=== PATIENT | female | born 1990 | race Caucasian/White ===

== ENCOUNTER 2022-11-28 09:37 | Emergency (ER) | payer SELFPAY ==
[2022-11-28 09:40] VITALS: BP 155/91; PULSE 111; RESP 19; TEMP 36.6; O2SAT 98; BMI 31.7
--- NOTE | 2022-11-28 09:47 | ED.NAVMDI ---
HPI - Nausea/Vomiting/Diarrhea General Chief complaint: Nausea/Vomiting/Diarrhea Stated complaint: Nausea Diarrhea Time Seen by Provider: 11/28/22 09:45 Source: patient Mode of arrival: ambulatory Limitations: no limitations History of Present Illness HPI Narrative: 32yo female previously healthy here with complaints of 3 days of nausea/vomiting/diarrhea after eating shrimp ramen (dried package from store). Patient reports 3-4 episodes of non-bloody stools per day. Multiple episodes of NBNB emesis, unable to tolerate liquids. +generalized abdominal cramping. No fevers, chills, uri symptoms. No recent travel, sick contact, antibiotic use. No previous abdominal surgeries. Took home COVID test which was negative Associated nausea: Yes Related Data Previous Rx's Medication Instructions Recorded albuterol sulfate 90 mcg/actuation 2 puff inhalation Q4-6H PRN 03/09/21 aerosol inhaler (ProAir HFA) shortness of breath or wheezing #8.5 grams dicyclomine 10 mg capsule 10 mg PO QID PRN abdominal pain 11/28/22 #20 caps ondansetron 4 mg disintegrating 4 mg PO Q6H PRN nausea and 11/28/22 tablet vomiting #15 tabs Allergies Allergy/AdvReac Type Severity Reaction Status Date / Time No Known Allergies Allergy Verified 11/28/22 09:40 Review of Systems Review of Systems: Yes all other systems are reviewed and are negative Constitutional: Constitutional: Reports no additional constitutional complaints, Denies body ache(s), Denies chills, Denies fever(s), Denies headache(s) and Denies weakness Eyes: Eyes: Reports no additional eye complaints and Denies change in vision ENT: Reports system reviewed and no additional complaints, except as documented, Denies dizziness, Denies headache(s), Denies nasal congestion, Denies nasal discharge and Denies neck pain Cardiovascular: Cardiovascular: Reports no additional cardiovascular complaints, Denies chest pain, Denies leg edema and Denies dyspnea Respiratory: Respiratory: Reports no additional respiratory complaints, Denies cough and Denies dyspnea Gastrointestinal: Gastrointestinal: Reports no additional gastrointestinal complaints, Denies abdominal pain, Reports diarrhea, Reports nausea and Reports vomiting Genitourinary: Genitourinary: Reports no additional female genitourinary complaints and Denies urinary incontinence Musculoskeletal: Musculoskeletal: Reports no additional musculoskeletal complaints, Denies back pain, Denies arthralgias, Denies joint swelling, Denies neck pain, Denies numbness and Denies tingling Integumentary/Breasts: Skin/Breast: Reports system reviewed and no additional complaints, except as docu and Denies rash Neurologic: Reports system reviewed and no additional complaints, except as documented, Denies Abnormal speech present, Denies dizziness, Denies headache(s), Denies numbness, Denies tingling and Denies weakness PMF Past Medical History Attestation statement: The following information was validated with the patient. Source: old records reviewed and nursing notes reviewed Family History Family History Mother Diabetes Hypothyroid Social History Social History Housing: Apartment Alcohol intake: never Patient Tobacco Use Status: Never used Tobacco Smoked in Last 30 Days: No Use of substances other than those prescribed or required for medical reasons: No Advance Directives: No Advance Directives Information Provided: No Current occupational status: employed Sexual orientation: Straight/Heterosexual Gender identity: Female Physical Exam Vital Signs: Vital Signs: Last Vital Signs Temp 98.4 F 11/28/22 12:02 Pulse 82 11/28/22 12:02 Resp 18 11/28/22 12:02 BP 129/83 11/28/22 12:02 Pulse Ox 100 11/28/22 12:02 O2 Del Method Room Air 11/28/22 12:02 BMI result Body Mass Index 31.7 Const: General: cooperative, healthy appearing, comfortable and no acute distress Orientation/consciousness: patient oriented x3 Limitations: no limitations HEENT: Head: Yes normal to inspection Ears: hearing grossly normal bilaterally General nose exam: Normal external nose present Face and sinus: Yes normal facial exam Mouth: Normal oral and palatal mucosa present Throat: Yes posterior oropharynx normal Eyes: General: appearance normal, both eyes and all related structures Pupils: Equal, round and reactive pupils present Neck: Neck: Yes normal visual inspection Chest: Chest palpation & inspection: normal inspection of the chest Resp: Effort & Inspection: normal respiratory effort Auscultation: clear to auscultation bilaterally Cardio: Rate: regular rate Rhythm: regular rhythm Peripheral pulses: Peripheral pulses 2+ throughout GI: Inspection: Yes normal to inspection and No distended Palpation (GI): Soft to palpation and nontender Auscultation: normal bowel sounds Back/Spine/Pelvis: Thoracic/Lumbar Spine: thoracic and lumbar spine normal to inspection Skin: General skin exam: no rashes or lesions noted Neuro: General: patient oriented x3, no focal motor deficits and normal sensation to monofilament Cranial nerves: Yes Equal, round and reactive pupils present Cognition (Neuro): normal cognition Speech: No Abnormal speech present Gait exam (Neuro): Normal gait present Motor exam (neuro): 5/5 motor strength present throughout Extrem: General: Yes normal to inspection, Yes no pedal edema and Yes no calf tenderness Course Course Course Narrative: Labs are unremarkable. COVID/flu/rsv are negative. Tolerating valente paxton and crackers with no additional vomiting. Likely viral gastroenteritis. Dc home with bentyl prn, zofran prn and strict return precautions. Medications Administered Discontinued Medications Generic Name Dose Route Start Last Admin Trade Name Freq PRN Reason Stop Dose Admin Sodium Chloride 2,000 mls @ 999 mls/hr 11/28/22 09:53 11/28/22 12:07 Ns IV 11/28/22 11:53 Infused .Q2H1M STA Infusion Ondansetron HCl 4 mg 11/28/22 09:53 11/28/22 10:23 Ondansetron Hcl 4 Mg/2 Ml Vial IVPUSH 11/28/22 09:54 4 mg ONCE ONE Administration Medical Decision Making Medical Decision Making [facility] Narrative: 32yo female here with complaints of 3 days of nausea/vomiting/diarrhea with generalized abdominal cramping. On exam no focal abdominal pain. +tachycardia with dry MM. Will obtain labs, UA, ur preg, covid/flu/rsv testing. Will place PIV, give IVF, antiemetic Differential Diagnosis Differential Diagnoses: The differential diagnosis associated with the presentation includes gastroenteritis low concern for infectious diarrhea, acute abdominal pathology Admission/Observation Consideration of admission/observation: Escalation of care including admission/observation considered see course of care Lab Data MDM Lab Attestation statement: I reviewed the patient's lab results. Labs are unremarkable 11/28/22 10:34 11/28/22 10:34 Labs: Lab Results 11/28/22 11/28/22 11/28/22 Range/Units 10:34 10:34 10:34 WBC 6.1 (4.8-10.8) X10*3/uL RBC 4.91 (4.20-5.50) X10*6/uL Hgb 13.5 (12.0-16.0) g/dl Hct 39.4 (37.0-47.0) % MCV 80.2 (80.0-98.0) fL MCH 27.5 (27.0-33.0) pg MCHC 34.3 (31.0-35.0) g/dl RDW 12.2 (11.0-16.0) % Plt Count 348 (160-400) X10*3/uL MPV 9.0 L (9.4-12.3) fL Immature Gran % (Auto) 0.5 H (0.0-0.4) % Neut % (Auto) 83.4 H (45-73) % Lymph % (Auto) 9.8 L (20-40) % [place] % (Auto) 6.1 (2-11) % Eos % (Auto) 0.0 (0-4) % Baso % (Auto) 0.2 (0-2) % Lymph # (Auto) 0.6 L (1.2-4.9) X10*3/uL [place] # (Auto) 0.4 (0.1-1.2) X10*3/uL Eos # (Auto) 0.0 (0.0-0.4) X10*3/uL Baso # (Auto) 0.0 (0.0-0.2) X10*3/uL Abs Immat Gran (auto) 0.03 (0.00-0.03) X10*3/uL Absolute Neuts (auto) 5.1 (2.0-8.3) x10*3/uL Absolute Nucleated RBC 0.000 (0.0-0.012) X10*3/uL Nucleated RBC % (auto) 0.0 (0.0-0.2) /100WBC Sodium 138 (135-145) mmol/L Potassium 3.8 (3.3-5.1) mmol/L Chloride 105 (96-108) mmol/L Carbon Dioxide 24 (22-29) mmol/L Anion Gap 13 (12-20) BUN 12 (9-16) mg/dL Creatinine 0.75 (0.5-1.4) mg/dL Estim Creat Clear Calc 123.2 Estimated GFR > 60 Random Glucose 118 H (60-115) mg/dL Calcium 9.8 (8.4-10.2) mg/dL Magnesium 2.0 (1.6-2.6) mg/dL Total Bilirubin 0.6 (0.0-1.0) mg/dL Direct Bilirubin 0.2 (0.0-0.5) mg/dL AST 18 (5-31) U/L ALT 16 (0-31) U/L Alkaline Phosphatase 115 (39-117) U/L Total Protein 8.2 H (6.5-8.0) g/dL Albumin 4.5 (3.5-5.0) g/dL Urine Color Urine Appearance Urine pH (5.0-9.0) Ur Specific [place] (1.005-1.025) Urine Protein (Neg-Trace) mg/dL Urine Glucose (UA) (Negative) mg/dL Urine Ketones (Negative) mg/dL Urine Blood (Negative) Urine Nitrite (Negative) Ur Leukocyte Esterase (Negative) Urine Test (NEGATIVE) Influenza Type A (PCR) NEGATIVE (Negative) Influenza Type B (PCR) NEGATIVE (Negative) RSV RNA Qual (PCR) NEGATIVE (Negative) SARS-CoV-2 RNA (RT-PCR) NEGATIVE (Negative) 11/28/22 11/28/22 Range/Units 10:35 11:55 WBC (4.8-10.8) X10*3/uL RBC (4.20-5.50) X10*6/uL Hgb (12.0-16.0) g/dl Hct (37.0-47.0) % MCV (80.0-98.0) fL MCH (27.0-33.0) pg MCHC (31.0-35.0) g/dl RDW (11.0-16.0) % Plt Count (160-400) X10*3/uL MPV (9.4-12.3) fL Immature Gran % (Auto) (0.0-0.4) % Neut % (Auto) (45-73) % Lymph % (Auto) (20-40) % [place] % (Auto) (2-11) % Eos % (Auto) (0-4) % Baso % (Auto) (0-2) % Lymph # (Auto) (1.2-4.9) X10*3/uL [place] # (Auto) (0.1-1.2) X10*3/uL Eos # (Auto) (0.0-0.4) X10*3/uL Baso # (Auto) (0.0-0.2) X10*3/uL Abs Immat Gran (auto) (0.00-0.03) X10*3/uL Absolute Neuts (auto) (2.0-8.3) x10*3/uL Absolute Nucleated RBC (0.0-0.012) X10*3/uL Nucleated RBC % (auto) (0.0-0.2) /100WBC Sodium (135-145) mmol/L Potassium (3.3-5.1) mmol/L Chloride (96-108) mmol/L Carbon Dioxide (22-29) mmol/L Anion Gap (12-20) BUN (9-16) mg/dL Creatinine (0.5-1.4) mg/dL Estim Creat Clear Calc Estimated GFR Random Glucose (60-115) mg/dL Calcium (8.4-10.2) mg/dL Magnesium (1.6-2.6) mg/dL Total Bilirubin (0.0-1.0) mg/dL Direct Bilirubin (0.0-0.5) mg/dL AST (5-31) U/L ALT (0-31) U/L Alkaline Phosphatase (39-117) U/L Total Protein (6.5-8.0) g/dL Albumin (3.5-5.0) g/dL Urine Color Yellow Urine Appearance Clear Urine pH 5.0 (5.0-9.0) Ur Specific [place] 1.020 (1.005-1.025) Urine Protein Trace (Neg-Trace) mg/dL Urine Glucose (UA) Negative (Negative) mg/dL Urine Ketones Trace (Negative) mg/dL Urine Blood Negative (Negative) Urine Nitrite Negative (Negative) Ur Leukocyte Esterase Negative (Negative) Urine Test NEGATIVE (NEGATIVE) Influenza Type A (PCR) (Negative) Influenza Type B (PCR) (Negative) RSV RNA Qual (PCR) (Negative) SARS-CoV-2 RNA (RT-PCR) (Negative) Tests considered The following testing was considered but not selected: No focal abdominal pain to suggest need for CT A/P Discharge Plan Discharge Clinical Impression: Gastroenteritis Patient Disposition: Home, Self-Care Instructions: Gastroenteritis (ED) Additional Instructions: Start with clear liquids, then advance diet as tolerated Lab work is normal Testing for covid, flu, rsv are negative Return for intractable vomiting, fever, worsening abdominal pain Prescriptions: New ondansetron 4 mg tablet,disintegrating 4 mg PO Q6H PRN (Reason: nausea and vomiting) Qty: 15 0RF dicyclomine 10 mg capsule 10 mg PO QID PRN (Reason: abdominal pain) Qty: 20 0RF No Action albuterol sulfate [ProAir HFA] 90 mcg/actuation HFA aerosol inhaler 2 puff inhalation Q4-6H PRN (Reason: shortness of breath or wheezing) Qty: 8.5 2RF Referrals: Arelis Velazquez [employer] [Primary Care Provider] - 10 days Stand Alone Forms: Work/School Release Interventions: ED Discharge Assessment Last Done: 11/28/22 12:30 Discharge Date/Time: 11/28/22 12:36
[2022-11-28] MEDS: ondansetron HCL 4 MG/2 ML VIAL IVPUSH (10:23)
[2022-11-28] MEDS: 0.9 % Sodium Chloride 2,000 ML 999 ML IV (10:23)
[2022-11-28 10:54] LABS: Basophils Percent Auto 0.2 % (0-2); Hematocrit 39.4 % (37.0-47.0); Hemoglobin 13.5 g/dl (12.0-16.0); Imm Gran Abs Auto 0.03 X10*3/uL (0.00-0.03); Imm Gran Pct Auto 0.5 % (0.0-0.4); Lymphocytes Absolute Auto 0.6 X10*3/uL (1.2-4.9); Lymphocytes Percent Auto 9.8 % (20-40); MANUAL DIFF FLAG NO; Mean Corpuscular HGB Conc 34.3 g/dl (31.0-35.0); Mean Corpuscular Hemoglobin 27.5 pg (27.0-33.0); Mean Corpuscular Volume 80.2 fL (80.0-98.0); Monocytes Absolute Auto 0.4 X10*3/uL (0.1-1.2); Monocytes Percent Auto 6.1 % (2-11); Neutrophils Absolute Auto 5.1 x10*3/uL (2.0-8.3); Neutrophils Percent Auto 83.4 % (45-73); Platelet Count 348 X10*3/uL (160-400); Red Blood Count 4.91 X10*6/uL (4.20-5.50); Red Cell Distribution Width 12.2 % (11.0-16.0); White Blood Count 6.1 X10*3/uL (4.8-10.8)
[2022-11-28 10:56] LABS: Appearance Urine Clear; Color Urine Yellow; Glucose Urine UA Negative (Negative); Leukocyte Esterase Urine Negative (Negative); Nitrite Urine Negative (Negative); Urine Blood Negative (Negative); Urine Ketones Trace mg/dL (Negative); Urine Protein Trace mg/dL (Neg-Trace)
[2022-11-28 11:06] LABS: Alanine Aminotransferase 16 U/L (0-31); Albumin Level 4.5 g/dL (3.5-5.0); Alkaline Phosphatase 115 U/L (39-117); Anion Gap 13 (12-20); Aspartate Amino Transferase 18 U/L (5-31); Bilirubin Direct 0.2 mg/dL (0.0-0.5); Bilirubin Total 0.6 mg/dL (0.0-1.0); Blood Urea Nitrogen 12 mg/dL (9-16); Calcium 9.8 mg/dL (8.4-10.2); Carbon Dioxide 24 mmol/L (22-29); Chloride 105 mmol/L (96-108); Creatinine Clr Calc Pharmacy 123.2; Estimated Glomerular Filt Rate > 60; Glucose Random 118 mg/dL (60-115); Potassium 3.8 mmol/L (3.3-5.1); Sodium 138 mmol/L (135-145); Total Protein 8.2 g/dL (6.5-8.0)
[2022-11-28 11:51] LABS: Influenza A PCR NEGATIVE (Negative); Influenza B PCR NEGATIVE (Negative); Resp Syncy Virus RNA Qual PCR NEGATIVE (Negative); SARS COV2 PCR INHOUSE NEGATIVE (Negative)
--- NOTE | 2022-11-28 11:53 | PC.NURSE ---
ambulated to bathroom to obtain urine sample. attempting to PO challenge pt with valente paxton and crackers at this time
[2022-11-28 12:02] VITALS: BP 129/83; PULSE 82; RESP 18; TEMP 36.9; O2SAT 100
[2022-11-28 12:09] LABS: UPreg QC Valid YES; Urine Pregnancy NEGATIVE (NEGATIVE)
== END 2022-11-28 12:36 | disposition home or self-care (01) ==
PROVIDERS: Nurse Practitioner Family; Emergency Provider Student in an Organized Health Care Education/Training Program; PCP Hospitalist
DX: K52.9 Noninfective gastroenteritis and colitis, unspecified (principal); R11.2 Nausea with vomiting, unspecified; Z20.822 Contact with and (suspected) exposure to COVID-19; Z20.828 Contact with and (suspected) exposure to other viral communicable diseases; Z79.899 Other long term (current) drug therapy
CPT/HCPCS: 0241U; 80048; 80076; 81003; 81025; 83735; 85025; 96361; 96374; 99284; J2405

== ENCOUNTER 2023-05-21 08:03 | Emergency (ER) | payer OTHER, SELFPAY ==
[2023-05-21 08:16] VITALS: BP 131/86; PULSE 102; RESP 19; TEMP 36.5; O2SAT 99; BMI 32.0
[2023-05-21 08:36] VITALS: BP 138/89; PULSE 101; RESP 18; TEMP 36.4; O2SAT 96
--- NOTE | 2023-05-21 08:39 | PC.NURSE ---
pt alert and oriented, breathing even and unlabored, skin slightly clammy. pt coming from home, reports 2 days of N/V/D and poor PO intake, along with chills and general malaise. Pt also reports burning epigastric pain, 6/10, reports feels like nothing is in my stomach . Pt denies any SOB. Resting in bed with son at this time
--- NOTE | 2023-05-21 09:29 | ED.NAVMDI ---
HPI - Nausea/Vomiting/Diarrhea General Chief complaint: Nausea/Vomiting/Diarrhea Stated complaint: Vomiting Time Seen by Provider: 05/21/23 08:55 Source: patient and RN notes reviewed Mode of arrival: ambulatory Limitations: no limitations History of Present Illness HPI Narrative: This is a 32-year-old female, no known medical problems, presenting to the emergency department for evaluation of nausea, vomiting, and diarrhea x2 days. Patient's son is sick with similar symptoms. She denies any fevers, chills, chest pain, shortness breath. She does endorse urinary urgency and frequency. Denies taking any medications at home to treat her current symptoms. She does report that she ate out last week. She is able to drink little sips of water, but otherwise unable to eat secondary to nausea and vomiting. No other complaints or concerns at this time. MD elicited complaint: nausea, vomiting and diarrhea Description of vomiting: watery Associated nausea: Yes Associated abdominal pain: Yes Location of pain: diffuse Pain consistency: constant Quality: cramping Exacerbating factors: none Relieving factors: none Associated symptoms: denies other symptoms Related Data Previous Rx's Medication Instructions Recorded albuterol sulfate 90 mcg/actuation 2 puff inhalation Q4-6H PRN 03/09/21 aerosol inhaler (ProAir HFA) shortness of breath or wheezing #8.5 grams dicyclomine 10 mg capsule 10 mg PO QID PRN abdominal pain 11/28/22 #20 caps ondansetron 4 mg disintegrating 4 mg PO Q6H PRN nausea and 11/28/22 tablet vomiting #15 tabs ondansetron 4 mg disintegrating 4 mg PO Q6-8H PRN nausea and 05/21/23 tablet vomiting #14 tabs Allergies Allergy/AdvReac Type Severity Reaction Status Date / Time No Known Allergies Allergy Verified 05/21/23 08:16 Review of Systems Review of Systems: Yes all other systems are reviewed and are negative Constitutional: Constitutional: Reports as per HPI Gastrointestinal: Gastrointestinal: Reports nausea PMFSH Past Medical History Attestation statement: The following information was validated with the patient. Family History Family History Mother Diabetes Hypothyroid Social History Social History Housing: Apartment Alcohol intake: never Patient Tobacco Use Status: Never used Tobacco Smoked in Last 30 Days: No Use of substances other than those prescribed or required for medical reasons: No Advance Directives: No Current occupational status: employed Sexual orientation: Straight/Heterosexual Gender identity: Female Physical Exam Vital Signs: Vital Signs: Last Vital Signs Temp 98.2 F 05/21/23 17:01 Pulse 104 H 05/21/23 17:01 Resp 16 05/21/23 17:01 BP 119/79 05/21/23 17:01 Pulse Ox 98 05/21/23 17:01 O2 Del Method Room Air 05/21/23 17:01 BMI result Body Mass Index 32.0 Const: General: cooperative, comfortable and no acute distress Orientation/consciousness: patient oriented x3 Limitations: no limitations HEENT: Head: Yes normal to inspection, Yes normocephalic and Yes atraumatic Ears: hearing grossly normal bilaterally General nose exam: Normal external nose present Face and sinus: Yes normal facial exam Mouth: Normal oral and palatal mucosa present, oropharynx normal and moist mucous membranes Throat: Yes posterior oropharynx normal Eyes: General: appearance normal, both eyes and all related structures Eyelids: Yes eyelids normal Conjunctivae: conjunctivae normal Sclerae: sclerae normal Pupils: Equal, round and reactive pupils present EOM: EOMs intact bilaterally Neck: Neck: Yes normal visual inspection, Yes full ROM and Yes no lymphadenopathy Lymphatic: no lymphadenopathy noted Chest: Chest palpation & inspection: normal inspection of the chest Resp: Effort & Inspection: normal respiratory effort and able to speak in complete sentences Auscultation: clear to auscultation bilaterally, no crackles, no rales, no rhonchi and no wheezes Cardio: Rate: regular rate Rhythm: regular rhythm Heart sounds: S1 normal heart sound present and S2 normal heart sound present GI: Other: Abdomen is soft, nontender, nondistended Inspection: Yes normal to inspection Skin: General skin exam: no rashes or lesions noted Trauma: no lacerations or abrasions Wounds: no wounds Neuro: General: patient oriented x3 and moves all extremities Cranial nerves: Yes Equal, round and reactive pupils present Extrem: General: Yes normal to inspection Right upper extremity: normal to inspection Left upper extremity: normal to inspection Right lower extremity: normal to inspection Left lower extremity: normal to inspection Course Reevaluation(s) Reevaluation #1: Patient re-evaluated, still feeling nauseous, slight pain in her abdomen, abdomen is still soft and nontender. Will medicate with Benadryl and Reglan. Time: 11:08 Reevaluation #2: patient feeling much better, tolerating oral p.o., no nausea or abdominal pain. Pt's son tested positive for influenza while in the ED. Pt's symptoms consistent with viral syndrome/gastroentritis. Will treat conservatively with fluids, zofran and given return precautions. She understands and agrees with plan. Stable for d/c. Time: 14:18 Medications Administered Discontinued Medications Generic Name Dose Route Start Last Admin Trade Name Freq PRN Reason Stop Dose Admin Acetaminophen 650 mg 05/21/23 17:04 05/21/23 17:07 Acetaminophen 325 Mg Tablet PO 05/21/23 17:05 650 mg ONCE ONE Administration Diphenhydramine HCl 25 mg 05/21/23 11:07 05/21/23 11:16 Diphenhydramine Hcl 50 Mg/Ml Vial IVPUSH 05/21/23 11:08 25 mg ONCE ONE Administration Sodium Chloride 1,000 mls @ 999 mls/hr 05/21/23 09:14 05/21/23 10:34 Ns IV 05/21/23 10:14 Infused .Q1H1M ONE Infusion Sodium Chloride 1,000 mls @ 999 mls/hr 05/21/23 11:07 05/21/23 15:09 Ns IV 05/21/23 12:07 Infused .Q1H1M ONE Infusion Metoclopramide HCl 10 mg 05/21/23 11:07 05/21/23 11:17 Metoclopramide Hcl 10 Mg/2 Ml Vial IVPUSH 05/21/23 11:08 10 mg ONCE ONE Administration Ondansetron HCl 4 mg 05/21/23 09:20 05/21/23 09:32 Ondansetron Hcl 4 Mg/2 Ml Vial IVPUSH 05/21/23 09:21 4 mg ONCE ONE Administration Medical Decision Making Medical Decision Making MDM Narrative: This is a 32-year-old female, with no known medical problems, presenting to the emergency department with complaints of abdominal pain, nausea, vomiting and diarrhea x 2 days. Patient's son is sick with similar symptoms. On arrival, patient nontoxic appearing, slight tachycardia at 102 beats per minute. Dry mucous membranes, abdomen is soft and nontender. Differential diagnoses include gastroenteritis, gastritis, influenza, RSV, COVID. Plan: Differential Diagnosis Differential Diagnoses: The differential diagnosis associated with the presentation includes see above Admission/Observation Consideration of admission/observation: Escalation of care including admission/observation considered Patient would have been admitted to the hospital had her work up had any findings where hospital admission was appropriate and her clinical presentation warranted hospital admission. Lab Data MDM Lab Attestation statement: I reviewed the patient's lab results. Slight leukocytosis at 12.9 - likely reactive due to vomiting, stable H&H, mild hyperglycemia at 121, otherwise unremarkable chemistry. 05/21/23 09:38 05/21/23 09:38 Labs: Lab Results 05/21/23 05/21/23 05/21/23 Range/Units 09:13 09:38 11:44 WBC 12.9 H (4.8-10.8) X10*3/uL RBC 4.80 (4.20-5.50) X10*6/uL Hgb 13.2 (12.0-16.0) g/dl Hct 39.0 (37.0-47.0) % MCV 81.3 (80.0-98.0) fL MCH 27.5 (27.0-33.0) pg MCHC 33.8 (31.0-35.0) g/dl RDW 12.3 (11.0-16.0) % Plt Count 373 (160-400) X10*3/uL MPV 9.1 L (9.4-12.3) fL Immature Gran % (Auto) 0.4 (0.0-0.4) % Neut % (Auto) 88.8 H (45-73) % Lymph % (Auto) 5.3 L (20-40) % [place] % (Auto) 4.4 (2-11) % Eos % (Auto) 0.9 (0-4) % Baso % (Auto) 0.2 (0-2) % Lymph # (Auto) 0.7 L (1.2-4.9) X10*3/uL [place] # (Auto) 0.6 (0.1-1.2) X10*3/uL Eos # (Auto) 0.1 (0.0-0.4) X10*3/uL Baso # (Auto) 0.0 (0.0-0.2) X10*3/uL Abs Immat Gran (auto) 0.05 H (0.00-0.03) X10*3/uL Absolute Neuts (auto) 11.5 H (2.0-8.3) x10*3/uL Absolute Nucleated RBC 0.000 (0.0-0.012) X10*3/uL Nucleated RBC % (auto) 0.0 (0.0-0.2) /100WBC Sodium 140 (135-145) mmol/L Potassium 3.9 (3.3-5.1) mmol/L Chloride 108 (96-108) mmol/L Carbon Dioxide 24 (22-29) mmol/L Anion Gap 12 (12-20) BUN 13 (9-16) mg/dL Creatinine 0.75 (0.5-1.4) mg/dL Estim Creat Clear Calc 123.8 Estimated GFR > 60 Random Glucose 121 H (60-115) mg/dL Calcium 8.8 D (8.4-10.2) mg/dL Total Bilirubin 0.6 (0.0-1.0) mg/dL Direct Bilirubin 0.2 (0.0-0.5) mg/dL AST 13 (5-31) U/L ALT 17 (0-31) U/L Alkaline Phosphatase 116 (39-117) U/L Troponin I High Sens < 2.7 (<3.5-17.0) ng/L Total Protein 8.7 H (6.5-8.0) g/dL Albumin 4.6 (3.5-5.0) g/dL Lipase 18 (8-78) U/L Beta HCG, Quant < 2 mIU/mL Urine Color Yellow Urine Appearance Clear Urine pH 5.0 (5.0-9.0) Ur Specific [place] 1.015 (1.005-1.025) Urine Protein Negative (Neg-Trace) mg/dL Urine Glucose (UA) Negative (Negative) mg/dL Urine Ketones Negative (Negative) mg/dL Urine Blood Negative (Negative) Urine Nitrite Negative (Negative) Ur Leukocyte Esterase Negative (Negative) Influenza Type A (PCR) NEGATIVE (Negative) Influenza Type B (PCR) NEGATIVE (Negative) RSV RNA Qual (PCR) NEGATIVE (Negative) SARS-CoV-2 RNA (RT-PCR) NEGATIVE (Negative) Discharge Plan Discharge Clinical Impression: Nausea & vomiting Patient Disposition: Still a Patient Instructions: Acute Nausea and Vomiting (ED) Additional Instructions: Your seen in the emergency department due to nausea and vomiting. You likely have a stomach virus or flu. You tested negative for the flu however given that your child has the flu, you likely also have the flu. Your labs were reassuring. Your urine does not appear to be infected. You tested negative for the flu, RSV, and COVID. Stick to a bland diet, drink plenty of fluids get plenty of rest. If any new or worsening symptoms occur including but not limited to chest pain or shortness of breath, please return for re-evaluation. Prescriptions: New ondansetron 4 mg tablet,disintegrating 4 mg PO Q6-8H PRN (Reason: nausea and vomiting) Qty: 14 0RF No Action ondansetron 4 mg tablet,disintegrating 4 mg PO Q6H PRN (Reason: nausea and vomiting) Qty: 15 0RF dicyclomine 10 mg capsule 10 mg PO QID PRN (Reason: abdominal pain) Qty: 20 0RF albuterol sulfate [ProAir HFA] 90 mcg/actuation HFA aerosol inhaler 2 puff inhalation Q4-6H PRN (Reason: shortness of breath or wheezing) Qty: 8.5 2RF Stand Alone Forms: Work/School Release Interventions: ED Discharge Assessment Last Done: 05/21/23 17:48 Discharge Date/Time: 05/21/23 17:49
[2023-05-21] MEDS: 0.9 % Sodium Chloride 1,000 ML 999 ML IV ×2 (09:31→11:20)
[2023-05-21] MEDS: ondansetron HCL 4 MG/2 ML VIAL IVPUSH (09:32)
[2023-05-21 09:44] LABS: MANUAL DIFF FLAG NO
[2023-05-21 09:52] LABS: Basophils Percent Auto 0.2 % (0-2); Eosinophils Absolute Auto 0.1 X10*3/uL (0.0-0.4); Eosinophils Percent Auto 0.9 % (0-4); Hemoglobin 13.2 g/dl (12.0-16.0); Imm Gran Abs Auto 0.05 X10*3/uL (0.00-0.03); Imm Gran Pct Auto 0.4 % (0.0-0.4); Lymphocytes Absolute Auto 0.7 X10*3/uL (1.2-4.9); Lymphocytes Percent Auto 5.3 % (20-40); Mean Corpuscular HGB Conc 33.8 g/dl (31.0-35.0); Mean Corpuscular Hemoglobin 27.5 pg (27.0-33.0); Mean Corpuscular Volume 81.3 fL (80.0-98.0); Mean Platelet Volume 9.1 fL (9.4-12.3); Monocytes Absolute Auto 0.6 X10*3/uL (0.1-1.2); Monocytes Percent Auto 4.4 % (2-11); Neutrophils Absolute Auto 11.5 x10*3/uL (2.0-8.3); Neutrophils Percent Auto 88.8 % (45-73); Platelet Count 373 X10*3/uL (160-400); Red Cell Distribution Width 12.3 % (11.0-16.0); White Blood Count 12.9 X10*3/uL (4.8-10.8)
[2023-05-21 10:08] LABS: Alanine Aminotransferase 17 U/L (0-31); Albumin Level 4.6 g/dL (3.5-5.0); Alkaline Phosphatase 116 U/L (39-117); Anion Gap 12 (12-20); Aspartate Amino Transferase 13 U/L (5-31); Bilirubin Direct 0.2 mg/dL (0.0-0.5); Bilirubin Total 0.6 mg/dL (0.0-1.0); Blood Urea Nitrogen 13 mg/dL (9-16); Calcium 8.8 mg/dL (8.4-10.2); Carbon Dioxide 24 mmol/L (22-29); Chloride 108 mmol/L (96-108); Creatinine Clr Calc Pharmacy 123.8; Estimated Glomerular Filt Rate > 60; Glucose Random 121 mg/dL (60-115); HCG Quantitative < 2 mIU/mL; Lipase 18 U/L (8-78); Potassium 3.9 mmol/L (3.3-5.1); Sodium 140 mmol/L (135-145); Total Protein 8.7 g/dL (6.5-8.0); Troponin-I High Sensitivity < 2.7 ng/L (<3.5-17.0)
[2023-05-21 10:17] LABS: Influenza A PCR NEGATIVE (Negative); Influenza B PCR NEGATIVE (Negative); Resp Syncy Virus RNA Qual PCR NEGATIVE (Negative); SARS COV2 PCR INHOUSE NEGATIVE (Negative)
--- NOTE | 2023-05-21 10:34 | PC.NURSE ---
pt resting in bed, reports improvement in nausea, no new complaints.
[2023-05-21 11:15] VITALS: BP 118/76; PULSE 102; RESP 18; TEMP 37; O2SAT 98
[2023-05-21] MEDS: diphenhydrAMINE HCL 50 MG/ML VIAL 25 MG IVPUSH (11:16)
[2023-05-21] MEDS: Metoclopramide HCl 10 MG/2 ML VIAL IVPUSH (11:17)
[2023-05-21 11:51] LABS: Appearance Urine Clear; Color Urine Yellow; Glucose Urine UA Negative (Negative); Leukocyte Esterase Urine Negative (Negative); Nitrite Urine Negative (Negative); Specific Gravity - Urine 1.015 (1.005-1.025); Urine Blood Negative (Negative); Urine Ketones Negative (Negative); Urine Protein Negative (Neg-Trace)
[2023-05-21 17:01] VITALS: BP 119/79; PULSE 104; RESP 16; TEMP 36.8; O2SAT 98
[2023-05-21] MEDS: Acetaminophen 325 MG TABLET 650 MG PO (17:07)
== END 2023-05-21 17:49 | disposition still patient (30) ==
PROVIDERS: Physician Assistant Medical; Emergency Provider Emergency Medicine
DX: R11.2 Nausea with vomiting, unspecified (principal); R19.7 Diarrhea, unspecified; R39.15 Urgency of urination; R35.0 Frequency of micturition; Z11.52 Encounter for screening for COVID-19; Z20.822 Contact with and (suspected) exposure to COVID-19; Z79.899 Other long term (current) drug therapy
CPT/HCPCS: 0241U; 36415; 80048; 80076; 81003; 83690; 84484; 84702; 85025; 96361; 96374; 96375; 99285; J1200; J2405; J2765

== ENCOUNTER 2024-04-13 03:29 | Emergency (ER) | payer OTHER, SELFPAY ==
--- NOTE | 2024-04-13 | ECG_ITS ---
Test Reason : CP Blood Pressure : */* mmHG Vent. Rate : 98 BPM Atrial Rate : 98 BPM P-R Int : 156 ms QRS Dur : 76 ms QT Int : 348 ms P-R-T Axes : 46 21 8 degrees QTcB Int : 444 ms Normal sinus rhythm Possible Left atrial enlargement Borderline ECG No previous ECGs available Referred By: Generic ED Physician Electronically Signed By: Regan Delgado
[2024-04-13 03:40] VITALS: BP 139/86; PULSE 90; RESP 16; TEMP 36.9; O2SAT 98; BMI 33.1
[2024-04-13 03:59] LABS: Basophils Percent Auto 0.2 % (0-2); Eosinophils Percent Auto 0.1 % (0-4); Hematocrit 36.8 % (37.0-47.0); Hemoglobin 13.2 g/dl (12.0-16.0); Imm Gran Abs Auto 0.04 X10*3/uL (0.00-0.03); Imm Gran Pct Auto 0.4 % (0.0-0.4); Lymphocytes Absolute Auto 0.5 X10*3/uL (1.2-4.9); Lymphocytes Percent Auto 4.4 % (20-40); MANUAL DIFF FLAG SCAN; Mean Corpuscular HGB Conc 35.9 g/dl (31.0-35.0); Mean Corpuscular Hemoglobin 28.3 pg (27.0-33.0); Mean Platelet Volume 8.7 fL (9.4-12.3); Monocytes Absolute Auto 0.4 X10*3/uL (0.1-1.2); Monocytes Percent Auto 3.5 % (2-11); Neutrophils Absolute Auto 9.5 x10*3/uL (2.0-8.3); Neutrophils Percent Auto 91.4 % (45-73); Platelet Count 377 X10*3/uL (160-400); Red Blood Count 4.66 X10*6/uL (4.20-5.50); Red Cell Distribution Width 12.4 % (11.0-16.0); SCAN SMEAR FLAG 1; White Blood Count 10.4 X10*3/uL (4.8-10.8)
[2024-04-13 04:13] LABS: Alanine Aminotransferase 27 U/L (0-31); Albumin Level 4.5 g/dL (3.5-5.0); Alkaline Phosphatase 117 U/L (39-117); Anion Gap 13 (12-20); Aspartate Amino Transferase 20 U/L (5-31); Bilirubin Total 0.7 mg/dL (0.0-1.0); Blood Urea Nitrogen 15 mg/dL (9-16); Calcium 9.1 mg/dL (8.4-10.2); Carbon Dioxide 22 mmol/L (22-29); Chloride 109 mmol/L (96-108); Creatinine Clr Calc Pharmacy 133.7; Estimated Glomerular Filt Rate > 60; Glucose Random 145 mg/dL (60-115); Potassium 4.3 mmol/L (3.3-5.1); Sodium 140 mmol/L (135-145); Total Protein 8.5 g/dL (6.5-8.0)
[2024-04-13 04:24] LABS: SLIDE REVIEW VERIFIED
[2024-04-13 04:36] LABS: Influenza A PCR NEGATIVE (Negative); Influenza B PCR NEGATIVE (Negative); Resp Syncy Virus RNA Qual PCR NEGATIVE (Negative); SARS COV2 PCR INHOUSE NEGATIVE (Negative)
--- NOTE | 2024-04-13 05:20 | ED_ITS ---
HPI - Nausea/Vomiting/Diarrhea General Chief complaint: Nausea/Vomiting/Diarrhea Stated complaint: chest pain, nausea, vomiting Time Seen by Provider: 04/13/24 05:12 Source: patient Mode of arrival: ambulatory Limitations: no limitations History of Present Illness ED Provider: Dr. Amada Edwards HPI Narrative: patient comes to the emergency room complaining of nausea vomiting and diarrhea for 2 days. Patient states that anything she drinks she be either vomits or has diarrhea. Patient states that everyone in her house has the same symptoms. The children started 1st. Patient denies significant abdominal pain. patient denies fever chills, no URI or UTI symptoms. Related Data Previous Rx's ?Medication ?Instructions ?Recorded albuterol sulfate 90 mcg/actuation 2 puff inhalation Q4-6H PRN 03/09/21 aerosol inhaler (ProAir HFA) shortness of breath or wheezing #8.5 grams dicyclomine 10 mg capsule 10 mg PO QID PRN abdominal pain 11/28/22 #20 caps ondansetron 4 mg disintegrating 4 mg PO Q6H PRN nausea and 11/28/22 tablet vomiting #15 tabs ondansetron 4 mg disintegrating 4 mg PO Q6-8H PRN nausea and 05/21/23 tablet vomiting #14 tabs loperamide 2 mg tablet 2 mg PO Q4H PRN loose stool #14 04/13/24 tabs ondansetron 4 mg disintegrating 4 mg PO Q6H PRN nausea and 04/13/24 tablet vomiting #14 tabs Allergies Allergy/AdvReac Type Severity Reaction Status Date / Time No Known Allergies Allergy Verified 04/13/24 03:41 Review of Systems 2 Review of Systems: Constitutional : No Weight loss, No Fever, No Chills, No Night Sweats, No Fatigue, No Malaise ENT/Mouth : No Hearing loss, No Ear Pain, No Nasal Congestion, No Sinus Pain, No Hoarseness, No sore throat, No Rhinorrhea, No Swallowing Difficulty Eyes: No Eye Pain, No Swelling, No Redness, No Foreign Body, No Discharge, No Vision Changes Cardiovascular : No Chest Pain, No SOB, No Dyspnea on Exertion, No Orthopnea, No Edema, No Palpitations Respiratory : No Cough, No Sputum, No Wheezing, No Smoke Exposure, No Dyspnea Gastrointestinal : Complaining of nausea vomiting and diarrhea, No Constipation, No abdominal Pain, No Hematochezia, No Melena Genitourinary : no irregular bleeding, No Dysuria, No Urinary Frequency, No Hematuria, No Urinary Incontinence, No Urgency, No Flank Pain, No Urinary Flow Changes, No Hesitancy Musculoskeletal : No joint pain, No Myalgias, No Joint Swelling Skin : No Skin Lesions, No rash Neuro : No Weakness, No Numbness, No Paresthesias, No Loss of Consciousness, No Dizziness, No Headache Psych : No Anxiety/Panic, No Depression, No SI/HI/AH/VH, No Social Issues, Heme/Lymph: No Bruising, No Bleeding,No Lymphadenopathy Endocrine : No Polyuria, No Polydipsia, No Temperature Intolerance [facility] Family History Family History Mother Diabetes Hypothyroid Social History Social History Housing: Apartment Alcohol intake: never Patient Tobacco Use Status: Never used Tobacco Smoked in Last 30 Days: No Advance Directives: No Advance Directives Information Provided: Yes Do you have a plan to hurt others: No Plan Patient : No Current occupational status: employed Sexual orientation: Straight/Heterosexual Gender identity: Female Physical Exam 2 Vital Signs: Vital Signs: Last Vital Signs Temp 98.4 F 04/13/24 03:40 Pulse 90 04/13/24 03:40 Resp 16 04/13/24 03:40 BP 139/86 04/13/24 03:40 Pulse Ox 98 04/13/24 03:40 O2 Del Method Room Air 04/13/24 03:40 BMI result Body Mass Index 33.1 Const: Other: Appearance: Alert. Oriented X3. No acute distress. Eyes: Pupils equal, round and reactive to light. ENT: dry oral mucosa Neck: Normal inspection. Neck supple. No lymph nodes noted. No crepitus CVS: Normal heart rate and rhythm. Pulses normal. Normal S1 and S2 Respiratory: No respiratory distress. Breath sounds normal. No Wheezing. No rales Abdomen: Soft and nontender. No rigidity. No distention. Skin: Skin warm and dry. Normal skin color. Normal skin turgor. Extremities: No lower extremity edema. No Lacerations. No Rash Neuro: Oriented X 3. No motor deficit. No sensory deficit. Moving all extremities. No slurred speech. CN 2 through 12 grossly intact Psych: calm, cooperative, normal affect Course Course Course Narrative: patient is dehydrated, needs IV fluids, for symptomatic treatment patient will be getting Zofran, Pepcid. In when patient is able to tolerate p.o., she will get p.o. loperamide. Medications Administered Discontinued Medications Generic Name Dose Route Start Last Admin Trade Name Freq PRN Reason Stop Dose Admin Famotidine 20 mg 04/13/24 05:18 04/13/24 05:41 Famotidine/Pf 20 Mg/2 Ml Vial IVPUSH 04/13/24 05:19 20 mg ONCE ONE Administration Sodium Chloride 1,000 mls @ 999 mls/hr 04/13/24 05:18 04/13/24 05:39 Ns IVCONT 04/13/24 06:18 999 mls/hr .Q1H1M ONE Administration Loperamide HCl 4 mg 04/13/24 05:18 04/13/24 05:42 Loperamide Hcl 2 Mg Capsule PO 04/13/24 05:19 4 mg ONCE ONE Administration Ondansetron HCl 4 mg 04/13/24 05:18 04/13/24 05:39 Ondansetron Hcl 4 Mg/2 Ml Vial IVPUSH 04/13/24 05:19 4 mg ONCE ONE Administration Medical Decision Making Medical Decision Making [facility] Narrative: My interpretation of labs: Patient's hematology does not show any significant abnormality, white blood cell count within normal limits, 10.4, no significant electrolyte abnormality in patient's chemistry patient's urinalysis pending I considered adding a CT scan of the abdomen. However, patient has no abdominal pain to palpation whatsoever. sign out given to my colleague Dr. Cancino Differential Diagnosis Differential Diagnoses: The differential diagnosis associated with the presentation includes ( gastritis, gastroenteritis, norovirus, viral syndrome) Lab Data [facility] Lab Attestation statement: I reviewed the patient's lab results. 04/13/24 03:57 04/13/24 03:57 Labs: Lab Results 04/13/24 Range/Units 03:57 WBC 10.4 (4.8-10.8) X10*3/uL RBC 4.66 (4.20-5.50) X10*6/uL Hgb 13.2 (12.0-16.0) g/dl Hct 36.8 L (37.0-47.0) % MCV 79.0 L (80.0-98.0) fL MCH 28.3 (27.0-33.0) pg MCHC 35.9 H (31.0-35.0) g/dl RDW 12.4 (11.0-16.0) % Plt Count 377 (160-400) X10*3/uL MPV 8.7 L (9.4-12.3) fL Immature Gran % (Auto) 0.4 (0.0-0.4) % Neut % (Auto) 91.4 H (45-73) % Lymph % (Auto) 4.4 L (20-40) % [place] % (Auto) 3.5 (2-11) % Eos % (Auto) 0.1 (0-4) % Baso % (Auto) 0.2 (0-2) % Lymph # (Auto) 0.5 L (1.2-4.9) X10*3/uL [place] # (Auto) 0.4 (0.1-1.2) X10*3/uL Eos # (Auto) 0.0 (0.0-0.4) X10*3/uL Baso # (Auto) 0.0 (0.0-0.2) X10*3/uL Abs Immat Gran (auto) 0.04 H (0.00-0.03) X10*3/uL Absolute Neuts (auto) 9.5 H (2.0-8.3) x10*3/uL Absolute Nucleated RBC 0.000 (0.0-0.012) X10*3/uL Nucleated RBC % (auto) 0.0 (0.0-0.2) /100WBC Smear Tech's Comments VERIFIED Sodium 140 (135-145) mmol/L Potassium 4.3 (3.3-5.1) mmol/L Chloride 109 H (96-108) mmol/L Carbon Dioxide 22 (22-29) mmol/L Anion Gap 13 (12-20) BUN 15 (9-16) mg/dL Creatinine 0.70 (0.5-1.4) mg/dL Estim Creat Clear Calc 133.7 Estimated GFR > 60 Random Glucose 145 H (60-115) mg/dL Calcium 9.1 (8.4-10.2) mg/dL Total Bilirubin 0.7 (0.0-1.0) mg/dL AST 20 (5-31) U/L ALT 27 (0-31) U/L Alkaline Phosphatase 117 (39-117) U/L Total Protein 8.5 H (6.5-8.0) g/dL Albumin 4.5 (3.5-5.0) g/dL Beta HCG, Quant < 2 mIU/mL Influenza Type A (PCR) NEGATIVE (Negative) Influenza Type B (PCR) NEGATIVE (Negative) RSV RNA Qual (PCR) NEGATIVE (Negative) SARS-CoV-2 RNA (RT-PCR) NEGATIVE (Negative) Critical Care Time Critical Care Time Critical Care Time: Yes Total Critical Care Time: 60 Attestation: I have personally provided critical care time. Time includes review of lab data, radiology results, discussion with consultants, and monitoring for potential decompensation. Intervention performed as documented. Discharge Plan Discharge Clinical Impression: Acute dehydration, Nausea vomiting and diarrhea Patient Disposition: Home, Self-Care Instructions: Dehydration (ED), Acute Nausea and Vomiting (ED), Acute Diarrhea (ED) Additional Instructions: Please follow-up with your primary care physician tomorrow. If you have any worsening or new symptoms, please return to the emergency room or call 911 Prescriptions: New ondansetron 4 mg tablet,disintegrating 4 mg PO Q6H PRN (Reason: nausea and vomiting) Qty: 14 0RF loperamide 2 mg tablet 2 mg PO Q4H PRN (Reason: loose stool) Qty: 14 0RF Rx Instructions: administer after each loose stool until symptoms controlled; do not exceed 8 mg per 24 hrs No Action ondansetron 4 mg tablet,disintegrating 4 mg PO Q6-8H PRN (Reason: nausea and vomiting) Qty: 14 0RF ondansetron 4 mg tablet,disintegrating 4 mg PO Q6H PRN (Reason: nausea and vomiting) Qty: 15 0RF dicyclomine 10 mg capsule 10 mg PO QID PRN (Reason: abdominal pain) Qty: 20 0RF albuterol sulfate [ProAir HFA] 90 mcg/actuation HFA aerosol inhaler 2 puff inhalation Q4-6H PRN (Reason: shortness of breath or wheezing) Qty: 8.5 2RF Print Language: Spanish
[2024-04-13] MEDS: 0.9 % Sodium Chloride 1,000 ML 999 ML IVCONT (05:39)
[2024-04-13] MEDS: ondansetron HCL 4 MG/2 ML VIAL IVPUSH (05:39)
[2024-04-13] MEDS: Famotidine/PF 20 MG/2 ML VIAL IVPUSH (05:41)
[2024-04-13] MEDS: Loperamide HCl 2 MG CAPSULE 4 MG PO (05:42)
[2024-04-13 05:48] LABS: HCG Quantitative < 2 mIU/mL
[2024-04-13 09:33] LABS: Appearance Urine Clear; Color Urine Yellow; Glucose Urine UA Negative (Negative); Leukocyte Esterase Urine Negative (Negative); Nitrite Urine Negative (Negative); PH 5.5 (5.0-9.0); Urine Blood Negative (Negative); Urine Ketones Negative (Negative); Urine Protein Negative (Neg-Trace)
[2024-04-13 10:10] VITALS: BP 103/58; PULSE 89; RESP 16; TEMP 36.1; O2SAT 100
== END 2024-04-13 10:11 | disposition home or self-care (01) ==
PROVIDERS: Emergency Medicine; Emergency Provider Emergency Medicine
DX: E86.0 Dehydration (principal); R11.2 Nausea with vomiting, unspecified; R19.7 Diarrhea, unspecified; Z03.818 Encounter for observation for suspected exposure to other biological agents ruled out
CPT/HCPCS: 0241U; 80053; 81003; 84702; 85025; 93005; 96361; 96374; 96375; 99284; 99285; J2405

== ENCOUNTER → 2024-04-13 03:36 | Outpatient (BNV) | payer OTHER, SELFPAY | PROVIDERS: Emergency Provider Emergency Medicine; Visit Provider Internal Medicine Cardiovascular Disease | DX: R07.9 Chest pain, unspecified (principal) | CPT/HCPCS: 93010 ==